=== PATIENT | male | born 1970 | race Caucasian/White ===

== ENCOUNTER 2016-06-20 12:10 | Emergency (ER) | payer BC, OTHER ==
[2016-06-20] MEDS ORDERED: Lidocaine 1% w/Epinephrine 1:100K 30 ML VIAL ONE (12:23)
[2016-06-20] MEDS ORDERED: Adacel (T-DAP) 0.5 ML VIAL ONE (12:47)
--- NOTE | 2016-06-20 14:25 | ERRECORD ---
[facility] EMERGENCY RECORD HPI LACERATION (12:23 MBRI) CHIEF COMPLAINT: Patient presents for evaluation of laceration to face, on the left, 0-1.5cm in length, No foreign body, Not grossly contaminated, Pt with through and through lac to the upper lip on the left side. Pt was working and a wrench slipped and struck him the face. No other injuries reported. No headache, no LOC. Denies other complaints. HISTORIAN: History provided by patient. MECHANISM OF INJURY: Known mechanism. QUALITY: Laceration quality straight. TIME COURSE: Sudden onset of symptoms, just prior to arrival. ASSOCIATED WITH: No associated symptoms. COMPLICATING FACTORS: No complicating factors, no risk for infection. EXACERBATED BY: Patient's condition exacerbated by nothing. RELIEVED BY: Patient's condition relieved by nothing. TETANUS: Tetanus status not up to date, tetanus immunization ordered. ROS (MonJun 21, 2016 06:10 MBRI) CONSTITUTIONAL: Negative constitutional review of systems. EYES: Negative eye review of systems. ENT: Negative ears, nose, throat review of systems, Historian denies drooling, denies dysphagia, denies dysphasia, denies dysphonia, denies epistaxis, denies rhinorrhea, denies sinus pain. CARDIOVASCULAR: Negative cardiovascular review of systems. RESPIRATORY: Negative respiratory review of systems. SKIN: Negative skin review of systems. NEUROLOGIC: Negative neurologic review of systems, Historian denies dizziness, denies headache. HEMO/LYMPHATIC: Normal hematologic/lymphatic system review. NOTES: All systems reviewed, negative except as described above. PAST MEDICAL HISTORY (12:20 LGIB) MEDICAL HISTORY: No past medical history, Flu vaccine not up to date, Tetanus not up to date, Pneumococcal vaccine not up to date. MALE SURGICAL HISTORY: Patient has no surgical history. PSYCHIATRIC HISTORY: No previous psychiatric history. SOCIAL HISTORY: Patient has no smoking history, Patient drinks socially, twice a month, Patient denies drug use. KNOWN ALLERGIES NKDA (Unconfirmed) No Known Allergies (Unconfirmed) No Known Drug Allergies CURRENT MEDICATIONS (12:18 LGIB) None &a-1R&a+25V*p+0X*j5879H*c202B*c15G*c2P*p-0X&a-25V&a+1R Name: MelimarkJc : 1970 M46 MedRec: [id number] AcctNum: [id number] Prepared: MonJun 23, 2016 10:53 by Interface Page 1 of 3 pMD [facility] EMERGENCY RECORD VITAL SIGNS VITAL SIGNS: BP: 175/108, Pulse: 86, Resp: 18 (Non-Labored), Temp: 98.3 (Oral), Pain: 1, O2 sat: 98 on Room Air, Time: 06/20/2016 12:18. (12:18 LGIB) BP: 158/97, Pulse: 84, Resp: 20, Temp: 98.0 (Oral), Pain: 0, O2 sat: 99 on Room Air, Time: 06/20/2016 12:56. (12:56 LSMI) PHYSICAL EXAM (MonJun 21, 2016 06:10 MBRI) CONSTITUTIONAL: Vital signs reviewed, Patient afebrile, Pulse normal, Blood pressure normal, Respiratory rate normal, Patient appears non toxic, Patient appears pain free, Patient alert and oriented to person, place and time. HEAD: normocephalic, 1cm laceration horizontal through dermis of the upper lip,. EYES: Eye exam included findings of eyelids normal to inspection, Pupils equally round and reactive to light, Extraocular muscles intact, Conjunctiva normal. ENT: Ear exam normal, Nose exam normal, Pharynx exam normal, Uvula exam normal, Tonsil exam normal, Mouth exam included findings of, Laceration noted, small lace to the intraoral surface of the upper lip. This appears to be a through and through lesion caused by the wrench impact., teeth normal. RESPIRATORY CHEST: Respiratory exam included findings of no respiratory distress, Breath sounds clear. CARDIOVASCULAR: Cardiovascular assessment normal. NEURO: Neuro exam findings include patient oriented to person, place and time, Speech normal, Gait normal, Cranial nerves intact. SKIN: Skin exam included findings of skin warm, dry, and normal in color. MEDICATION ADMINISTRATION SUMMARY Drug Name: Adacel(Tdap Adolesn/Adult)(PF), Dose Ordered: 0.5 mL, Route: Intramuscular, Status: Ordered, Time: 12:28 06/20/2016, Detailed record available in Medication Service section. DOCTOR NOTES (12:49 MBRI) TEXT: PT has a hx of HTN and has been asymptomatic with the current pressure. No evidence at this time to suggest an associated cardiovascular or neurologic process requiring further intervention or evaluation during this encounter. The patient is on a medication regimen for this and it is recommended that they follow-up with their PMD to further assess their BP control. PROBLEM LIST No recorded problems DIAGNOSIS (12:48 MBRI) FINAL: PRIMARY: facial laceration. &a-1R&a+25V*p+0X*h6170F*c202B*c15G*c2P*p-0X&a-25V&a+1R Name: Jc De La Cruz : 1970 6 MedRec: [id number] AcctNum: [id number] Prepared: MonJun 23, 2016 10:53 by Interface Page 2 of 3 pMD [facility] EMERGENCY RECORD PRESCRIPTION No recorded prescriptions DISPOSITION PATIENT: Disposition Type: Discharge, Disposition: *Discharge Home, Condition: Improved. (12:48 MBRI) Patient left the department. (13:04 LSMI) Young: LGIB=MADALYN Monteiro, Dina LSMI=RUMA Garza Leah MBRI=DO Giang Matthew &a-1R&a+25V*p+0X*p6457O*c202B*c15G*c2P*p-0X&a-25V&a+1R Name: Jc De La Cruz : 1970 6 MedRec: [id number] AcctNum: [id number] Prepared: MonJun 23, 2016 10:53 by Interface Page 3 of 3 pMD MTDD
--- NOTE | 2016-06-20 14:27 | PICIS ---
[facility] EMERGENCY RECORD TRIAGE (MonJun 20, 2016 12:18 LGIB) PATIENT: NAME: Jc De La Cruz, AGE: 46, GENDER: male, : Mon1970, TIME OF GREET: MonJun 20, 2016 12:11, PREFERRED LANGUAGE: Macedonian, ETHNICITY: Not or , ECODE BILLING MAP: [facility], SSN: [id number], Zip Code: [address], KG WEIGHT: 95.25, PHONE: , , , PERSON ID: [id number], PCP: none. (MonJun 20, 2016 12:18 LGIB) PAYMENT: SJ[employer] Self Pay. (12:44) COMPLAINT: lip laceration. (MonJun 20, 2016 12:18 LGIB) ADMISSION: URGENCY: 4 Non Urgent, ADMISSION SOURCE: Home, TRANSPORT: CAR, BED: ER -03. (MonJun 20, 2016 12:18 LGIB) SIRS SCORING: Heart Rate 55-109 (0), Temp range 96.8-101.1 (0), respiratory rate 12-24 (0), Mental Status altered: no (0), Total SIRS Score 0. (12:20 LGIB) PROVIDERS: TRIAGE NURSE: Dina Monteiro RN. (MonJun 20, 2016 12:18 LGIB) PREVIOUS VISIT ALLERGIES: NKDA. (MonJun 20, 2016 12:18 LGIB) NKDA. (12:20 LGIB) KNOWN ALLERGIES NKDA (Unconfirmed) No Known Allergies (Unconfirmed) No Known Drug Allergies CURRENT MEDICATIONS (12:18 LGIB) None VITAL SIGNS VITAL SIGNS: BP: 175/108, Pulse: 86, Resp: 18 (Non-Labored), Temp: 98.3 (Oral), Pain: 1, O2 sat: 98 on Room Air, Time: 06/20/2016 12:18. (12:18 LGIB) BP: 158/97, Pulse: 84, Resp: 20, Temp: 98.0 (Oral), Pain: 0, O2 sat: 99 on Room Air, Time: 06/20/2016 12:56. (12:56 LSMI) NURSING ASSESSMENT: SKIN (12:25 LGIB) CONSTITUTIONAL: Complex assessment performed, Patient arrives ambulatory, Gait steady, History obtained from patient, Patient appears comfortable, Patient cooperative, Patient alert, Oriented to person, place and time, Skin warm, Skin dry, Skin normal in color, Mucous membranes pink, Mucous membranes moist, Patient is well-groomed, Patient complains of lip laceration, wrench popped up and hit patient in the mouth. patient has a through and through laceration of his upper lip. PAIN: upper lip, Onset of pain 06/20/2016 12:00, on a scale 0-10 patient rates pain as 1, Nothing has been tried to alleviate the pain. SKIN: Inspection findings include laceration, to upper lip, length (cm) 1, bleeding controlled. SAFETY: Side rails up, Cart/Stretcher in lowest position, Call &a-1R&a+25V*p+0X*y5609H*c202B*c15G*c2P*p-0X&a-25V&a+1R Name: Jc De La Cruz : 1970 M46 MedRec: [id number] AcctNum: [id number] Prepared: [facility] Jun 23, 2016 10:53 by Interface Page 1 of 5 pMD [facility] EMERGENCY RECORD light within reach, Hospital ID band on. NURSING PROCEDURE: DISCHARGE NOTE (13:01 LSMI) DISCHARGE: Patient discharged to home, ambulating without assistance, driving self, accompanied by friend, Summary of Care printed/ provided, Transition record given to patient, Discharge instructions given to patient. NURSING PROCEDURE: NURSE NOTES (12:37 LGIB) NURSES NOTES: Notes: laceration irrigated with normal saline. MEDICATION ADMINISTRATION SUMMARY Drug Name: Adacel(Tdap Adolesn/Adult)(PF), Dose Ordered: 0.5 mL, Route: Intramuscular, Status: Ordered, Time: 12:28 06/20/2016, Detailed record available in Medication Service section. MEDICATION SERVICE (12:[address] [facility]) Adacel(Tdap Adolesn/Adult)(PF): Order: Adacel(Tdap Adolesn/Adult)(PF) (diphth,pertuss(acell),tet vac/preservative free) - Dose: 0.5 mL : Intramuscular Ordered by: Jacob Giang DO Entered by: Jacob Giang DO MonJun 20, 2016 12:28 , Acknowledged by: Dina Monteiro RN MonJun 20, 2016 12:30. HPI LACERATION (12:23 MBRI) CHIEF COMPLAINT: Patient presents for evaluation of laceration to face, on the left, 0-1.5cm in length, No foreign body, Not grossly contaminated, Pt with through and through lac to the upper lip on the left side. Pt was working and a wrench slipped and struck him the face. No other injuries reported. No headache, no LOC. Denies other complaints. HISTORIAN: History provided by patient. MECHANISM OF INJURY: Known mechanism. QUALITY: Laceration quality straight. TIME COURSE: Sudden onset of symptoms, just prior to arrival. ASSOCIATED WITH: No associated symptoms. COMPLICATING FACTORS: No complicating factors, no risk for infection. EXACERBATED BY: Patient's condition exacerbated by nothing. RELIEVED BY: Patient's condition relieved by nothing. TETANUS: Tetanus status not up to date, tetanus immunization ordered. ROS (MonJun 21, 2016 06:10 MBRI) CONSTITUTIONAL: Negative constitutional review of systems. EYES: Negative eye review of systems. ENT: Negative ears, nose, throat review of systems, Historian denies drooling, denies dysphagia, denies dysphasia, denies dysphonia, denies epistaxis, denies rhinorrhea, denies sinus pain. &a-1R&a+25V*p+0X*v7798C*c202B*c15G*c2P*p-0X&a-25V&a+1R Name: Jc De La Cruz : 1970 M46 MedRec: [id number] AcctNum: [id number] Prepared: Yarelis Jun 23, 2016 10:53 by Interface Page 2 of 5 pMD [facility] EMERGENCY RECORD CARDIOVASCULAR: Negative cardiovascular review of systems. RESPIRATORY: Negative respiratory review of systems. SKIN: Negative skin review of systems. NEUROLOGIC: Negative neurologic review of systems, Historian denies dizziness, denies headache. HEMO/LYMPHATIC: Normal hematologic/lymphatic system review. NOTES: All systems reviewed, negative except as described above. PAST MEDICAL HISTORY (12:20 LGIB) MEDICAL HISTORY: No past medical history, Flu vaccine not up to date, Tetanus not up to date, Pneumococcal vaccine not up to date. MALE SURGICAL HISTORY: Patient has no surgical history. PSYCHIATRIC HISTORY: No previous psychiatric history. SOCIAL HISTORY: Patient has no smoking history, Patient drinks socially, twice a month, Patient denies drug use. PHYSICAL EXAM (MonJun 21, 2016 06:10 MBRI) CONSTITUTIONAL: Vital signs reviewed, Patient afebrile, Pulse normal, Blood pressure normal, Respiratory rate normal, Patient appears non toxic, Patient appears pain free, Patient alert and oriented to person, place and time. HEAD: normocephalic, 1cm laceration horizontal through dermis of the upper lip,. EYES: Eye exam included findings of eyelids normal to inspection, Pupils equally round and reactive to light, Extraocular muscles intact, Conjunctiva normal. ENT: Ear exam normal, Nose exam normal, Pharynx exam normal, Uvula exam normal, Tonsil exam normal, Mouth exam included findings of, Laceration noted, small lace to the intraoral surface of the upper lip. This appears to be a through and through lesion caused by the wrench impact., teeth normal. RESPIRATORY CHEST: Respiratory exam included findings of no respiratory distress, Breath sounds clear. CARDIOVASCULAR: Cardiovascular assessment normal. NEURO: Neuro exam findings include patient oriented to person, place and time, Speech normal, Gait normal, Cranial nerves intact. SKIN: Skin exam included findings of skin warm, dry, and normal in color. EVENTS TRANSFER: Triage to Emergency Emergency Room -03. (MonJun 20, 2016 12:18 LGIB) Removed from Emergency Emergency Room -03. (13:04 LSMI) O2SAT INTERPRETATION (MonJun 21, 2016 06:13 MBRI) O2SAT: Oxygen saturation interpretation: Normal. DOCTOR NOTES (12:49 MBRI) &a-1R&a+25V*p+0X*x8998B*c202B*c15G*c2P*p-0X&a-25V&a+1R Name: Jc De La Cruz : 1970 M46 MedRec: [id number] AcctNum: [id number] Prepared: [facility] Jun 23, 2016 10:53 by Interface Page 3 of 5 pMD [facility] EMERGENCY RECORD TEXT: PT has a hx of HTN and has been asymptomatic with the current pressure. No evidence at this time to suggest an associated cardiovascular or neurologic process requiring further intervention or evaluation during this encounter. The patient is on a medication regimen for this and it is recommended that they follow-up with their PMD to further assess their BP control. LACERATION-SINGLE REPAIR (MonJun 21, 2016 06:13 MBRI) TIMEOUT: Side and/or site verified, Patient identification confirmed, Sterile procedures observed. LACERATION REPAIR: Side and/or site verified, Patient identification confirmed, Sterile procedures observed, Verbal consent obtained, No contamination, no bony deformity, no ecchymosis, Wound not near a neurovascular bundle, Local infiltration with, 1% LIDOCAINE with epinephrine, 4mL, Patient prepped and draped in usual sterile fashion, Wound irrigated with normal saline, Simple repair of laceration, to the upper lip, total length 1.0 cm, Skin layer closed, using 5.0, prolene suture, 2 sutures, interrupted, After procedure, wound well approximated, No complications, Tetanus status not up to date, tetanus immunization ordered, Patient tolerated the procedure well, No foreign body present. PROBLEM LIST No recorded problems DIAGNOSIS (12:48 MBRI) FINAL: PRIMARY: facial laceration. DISPOSITION PATIENT: Disposition Type: Discharge, Disposition: *Discharge Home, Condition: Improved. (12:48 MBRI) Patient left the department. (13:04 LSMI) INSTRUCTION (12:49 MBRI) DISCHARGE: FACIAL LACERATION SUTURE TAPE, MOUTH LACERATION. FOLLOWUP: [facility] [address] [place] [address], , Follow up with Primary Care Physician in 7 days. SPECIAL: Please return for any further issues or concerns, we would be happy to see you. We hope you feel better soon. Follow-up with your PCP for suture removal in 7 days please. May return to work. PRESCRIPTION No recorded prescriptions IMAGING TETANUS CONSENT: Image captured from scanner. (12:58 LSMI) *SUPPLY CHARGE SHEET: Image captured from scanner. (12:58 LSMI) &a-1R&a+25V*p+0X*m2420G*c202B*c15G*c2P*p-0X&a-25V&a+1R Name: MeliJc flores : 1970 M46 MedRec: [id number] AcctNum: [id number] Prepared: MonJun 23, 2016 10:53 by Interface Page 4 of 5 pMD [facility] EMERGENCY RECORD *DISCHARGE INSTRUCTIONS RECEIPT: Image captured from scanner. (13:02 LSMI) ADMIN (MonJun 23, 2016 10:47 MBRI) DIGITAL SIGNATURE: DO Giang Matthew. Young: LGIB=MADALYN Monteiro Lauren LSMI=RUMA Garza Leah MBRI=DO Giang Matthew &a-1R&a+25V*p+0X*s5221F*c202B*c15G*c2P*p-0X&a-25V&a+1R Name: Jc De La Cruz : 1970 6 MedRec: [id number] AcctNum: [id number] Prepared: MonJun 23, 2016 10:53 by Interface Page 5 of 5 pMD [facility] MEDICATION RECONCILIATION You were seen in the Emergency Department on: MonJun 20, 2016 KNOWN ALLERGIES NKDA (Unconfirmed) No Known Allergies (Unconfirmed) No Known Drug Allergies HOME MEDICATIONS None Notes from the emergency department Reviewed with patient &a-1R&a+25V*p+0X*k0784H*c202B*c15G*c2P*p-0X&a-25V&a+1R Name: Jc De La Cruz : 1970 6 MedRec: [id number] AcctNum: [id number] Prepared: MonJun 23, 2016 10:53 by Interface pMD [facility]
== END 2016-06-20 13:01 | disposition home or self-care (01) ==
LOC: BURERS 12:10
DX: S01.511A Laceration without foreign body of lip, initial encounter (principal); W27.8XXA Contact with other nonpowered hand tool, initial encounter; Y92.69 Other specified industrial and construction area as the place of occurrence of the external cause; Y99.0 Civilian activity done for income or pay
CPT/HCPCS: 12011; 90715; J2001

== ENCOUNTER 2016-06-27 10:56 | Emergency (ER) | payer BC ==
--- NOTE | 2016-06-27 11:23 | ERRECORD ---
[facility] EMERGENCY RECORD HPI WOUND CHECK (11:13 MBRI) CHIEF COMPLAINT: Patient presents for evaluation of facial wound, laceration, closed with sutures, Wound is 7 days old, Patient presents for evaluation of Suture removal. HISTORIAN: History provided by patient. LOCATION: Symptoms are localized, most severe to Left upper lip. QUALITY: No pain or complications reported by historian. SEVERITY: Currently there are no symptoms. TIME COURSE: Symptoms are improving. ASSOCIATED WITH: No associated symptoms. EXACERBATED BY: Patient's condition exacerbated by nothing. ROS CONSTITUTIONAL: Negative constitutional review of systems, Historian denies chills, denies fever. (11:13 MBRI) EYES: Negative eye review of systems. (11:13 MBRI) ENT: Negative ears, nose, throat review of systems. (11:13 MBRI) MUSCULOSKELETAL: Historian denies injury, Denies any musculoskeletal pain. (11:13 MBRI) SKIN: Negative skin review of systems, Historian denies skin changes, States wound is healing without any signs of infection or irritation. No pain at site of injury. (11:13 MBRI) NOTES: All systems reviewed, negative except as described above. (11:14 MBRI) PAST MEDICAL HISTORY (11:01 KMOR) MEDICAL HISTORY: No past medical history, Flu vaccine not up to date, Tetanus not up to date, Pneumococcal vaccine not up to date. MALE SURGICAL HISTORY: Patient has no surgical history. PSYCHIATRIC HISTORY: No previous psychiatric history. SOCIAL HISTORY: Patient has no smoking history, Patient drinks socially, twice a month, Patient denies drug use. KNOWN ALLERGIES No Known Drug Allergies CURRENT MEDICATIONS (11:01 KMOR) None VITAL SIGNS (11:00 KMOR) VITAL SIGNS: BP: 159/99, Pulse: 80, Resp: 18, Temp: 97.9 (Oral), Pain: 0, O2 sat: 99 on Room Air, Time: 06/27/2016 11:00. PHYSICAL EXAM (11:13 MBRI) CONSTITUTIONAL: Vital Signs Reviewed, Nursing notes reviewed. HEAD: Head exam included findings of head atraumatic, normocephalic. EYES: Eye exam included findings of eyelids normal to inspection, &a-1R&a+25V*p+0X*v1502B*c202B*c15G*c2P*p-0X&a-25V&a+1R Name: Jc De La Cruz : 1970 M46 MedRec: [id number] AcctNum: [id number] Prepared: MonJun 28, 2016 09:28 by Interface Page 1 of 2 pMD [facility] EMERGENCY RECORD Pupils equally round and reactive to light, Extraocular muscles intact. ENT: ENT exam normal. NEURO: Neuro exam findings include patient oriented to person, place and time, Speech normal, no focal motor deficits. SKIN: Skin exam included findings of skin warm, dry, and normal in color, area of laceration appears to be healing normally. No indications for infection. DOCTOR NOTES (11:13 MBRI) TEXT: PT has a hx of HTN and has been asymptomatic with the current pressure. No evidence at this time to suggest an associated cardiovascular or neurologic process requiring further intervention or evaluation during this encounter. The patient is on a medication regimen for this and it is recommended that they follow-up with their PMD to further assess their BP control. Pt evaluated at this time and appears stable. No findings to suggest sig illness or issue requiring hospitalization or further intervention at this time. Plan of care discussed with pt and questions answered. Pt was informed of reasons for follow-up and return and they stated understanding. Pt is stable for d/c home at this time. PROBLEM LIST No recorded problems DIAGNOSIS FINAL: PRIMARY: lip laderation - healed, sutures removed, ADDITIONAL: ESSENTIAL PRIMARY HYPERTENSION. (11:12 MBRI) PRIMARY: wound check, ADDITIONAL: Suture removal. (11:13 MBRI) PRESCRIPTION No recorded prescriptions DISPOSITION PATIENT: Disposition Type: Discharge, Disposition: *Discharge Home, Condition: Good. (11:12 MBRI) Patient left the department. (11:16 KMOR) Young: KMOR=MADALYN Castaneda, Amada MBRI=DO Giang Matthew &a-1R&a+25V*p+0X*o0128J*c202B*c15G*c2P*p-0X&a-25V&a+1R Name: Jc De La Cruz : 1970 M46 MedRec: [id number] AcctNum: [id number] Prepared: MonJun 28, 2016 09:28 by Interface Page 2 of 2 pMD MTDD
--- NOTE | 2016-06-27 11:23 | PICIS ---
[facility] EMERGENCY RECORD TRIAGE (MonJun 27, 2016 11:00 KMOR) TRIAGE NOTES: Suture removal, placed 1 weeks ago in lip. (MonJun 27, 2016 11:00 KMOR) PATIENT: NAME: Jc De La Cruz, AGE: 46, GENDER: male, : Mon1970, TIME OF GREET: MonJun 27, 2016 10:56, PREFERRED LANGUAGE: Danish, ETHNICITY: Not or , ECODE BILLING MAP: [facility], SSN: [id number], Zip Code: [address], KG WEIGHT: 95.25, PHONE: , , , PERSON ID: [id number], PAYMENT: KEITH Matthew, PCP: none. (MonJun 27, 2016 11:00 KMOR) COMPLAINT: Suture Removal. (MonJun 27, 2016 11:00 KMOR) ADMISSION: URGENCY: 5 Fast [employer], ADMISSION SOURCE: Home, TRANSPORT: CAR, BED: ER -02. (MonJun 27, 2016 11:00 KMOR) ASSESSMENT: Assessment: A&OX4. RR EVEN AND UNLABORED., Symptoms began greater than 1 week ago. (11:01 KMOR) PAIN: No complaint of pain. (11:01 KMOR) IMMUNIZATIONS: Tetanus immunization up to date. (11:01 KMOR) SIRS SCORING: Heart Rate 55-109 (0), Temp range 96.8-101.1 (0), respiratory rate 12-24 (0), Mental Status altered: no (0), Infection or Suspected Infection: No. (11:01 KMOR) TRIAGE SCREENING: Patient denies suicidal ideation, Patient denies presence of domestic violence. (11:01 KMOR) PROVIDERS: TRIAGE NURSE: Amada Castaneda RN. (MonJun 27, 2016 11:00 KMOR) VITAL SIGNS: BP 159/99, Pulse 80, Resp 18, Temp 97.9, (Oral), Pain 0, O2 Sat 99, on Room Air, Time 06/27/2016 11:00. (11:00 KMOR) PREVIOUS VISIT ALLERGIES: No Known Drug Allergies. (MonJun 27, 2016 11:00 KMOR) No Known Drug Allergies. (11:01 KMOR) KNOWN ALLERGIES No Known Drug Allergies CURRENT MEDICATIONS (11:01 KMOR) None VITAL SIGNS (11:00 KMOR) VITAL SIGNS: BP: 159/99, Pulse: 80, Resp: 18, Temp: 97.9 (Oral), Pain: 0, O2 sat: 99 on Room Air, Time: 06/27/2016 11:00. NURSING ASSESSMENT: SKIN (11:02 KMOR) CONSTITUTIONAL: Patient arrives ambulatory, Gait steady, History obtained from patient, Patient appears comfortable, Patient cooperative, Patient alert, Oriented to person, place and time, Skin warm, Skin dry, Skin normal in color, Mucous membranes pink, Mucous membranes moist, Patient is well-groomed, Patient complains of Suture removal, upper lip sutures placed 1 week ago, no complications, here for removal. PAIN: Patient rates pain as 0 out of 10. SKIN: Skin assessment findings include skin warm, Skin dry, Skin &a-1R&a+25V*p+0X*[id number]*c202B*c15G*c2P*p-0X&a-25V&a+1R Name: Jc De La Cruz : 1970 M46 MedRec: [id number] AcctNum: [id number] Prepared: Petty Jun 28, 2016 09:28 by Interface Page 1 of 4 pMD [facility] EMERGENCY RECORD normal in color, Notes: 2 sutures to upper lip, well healed, no signs of infection. NOTES: Patient tolerated procedure well. NURSING PROCEDURE: DISCHARGE NOTE (11:09 [facility]) DISCHARGE: Patient discharged to home, ambulating without assistance, driving self, unaccompanied, Summary of Care printed/ provided, Patient requested and was provided an electronic copy of Discharge Instructions, Transition record given to patient, Discharge instructions given to patient, Simple or moderate discharge teaching performed, Prescriptions given and instructions on side effects given, Medication reconciliation form given, Above person(s) verbalized understanding of discharge instructions and follow-up care, Patient treated and evaluated by physician. HPI WOUND CHECK (11:13 RI) CHIEF COMPLAINT: Patient presents for evaluation of facial wound, laceration, closed with sutures, Wound is 7 days old, Patient presents for evaluation of Suture removal. HISTORIAN: History provided by patient. LOCATION: Symptoms are localized, most severe to Left upper lip. QUALITY: No pain or complications reported by historian. SEVERITY: Currently there are no symptoms. TIME COURSE: Symptoms are improving. ASSOCIATED WITH: No associated symptoms. EXACERBATED BY: Patient's condition exacerbated by nothing. ROS CONSTITUTIONAL: Negative constitutional review of systems, Historian denies chills, denies fever. (11:13 MBRI) EYES: Negative eye review of systems. (11:13 MBRI) ENT: Negative ears, nose, throat review of systems. (11:13 MB[facility]) MUSCULOSKELETAL: Historian denies injury, Denies any musculoskeletal pain. (11:13 MBRI) SKIN: Negative skin review of systems, Historian denies skin changes, States wound is healing without any signs of infection or irritation. No pain at site of injury. (11:13 MBRI) NOTES: All systems reviewed, negative except as described above. (11:14 MBRI) PAST MEDICAL HISTORY (11:01 KMOR) MEDICAL HISTORY: No past medical history, Flu vaccine not up to date, Tetanus not up to date, Pneumococcal vaccine not up to date. MALE SURGICAL HISTORY: Patient has no surgical history. PSYCHIATRIC HISTORY: No previous psychiatric history. SOCIAL HISTORY: Patient has no smoking history, Patient drinks socially, twice a month, Patient denies drug use. &a-1R&a+25V*p+0X*s1587S*c202B*c15G*c2P*p-0X&a-25V&a+1R Name: Jc De La Cruz : 1970 M46 MedRec: [id number] AcctNum: [id number] Prepared: MonJun 28, 2016 09:28 by Interface Page 2 of 4 pMD [facility] EMERGENCY RECORD PHYSICAL EXAM (11:13 MBRI) CONSTITUTIONAL: Vital Signs Reviewed, Nursing notes reviewed. HEAD: Head exam included findings of head atraumatic, normocephalic. EYES: Eye exam included findings of eyelids normal to inspection, Pupils equally round and reactive to light, Extraocular muscles intact. ENT: ENT exam normal. NEURO: Neuro exam findings include patient oriented to person, place and time, Speech normal, no focal motor deficits. SKIN: Skin exam included findings of skin warm, dry, and normal in color, area of laceration appears to be healing normally. No indications for infection. EVENTS TRANSFER: Triage to Emergency Emergency Room -02. (MonJun 27, 2016 11:00 KMOR) Removed from Emergency Emergency Room -02. (11:16 KMOR) O2SAT INTERPRETATION (11:15 MBRI) O2SAT: Oxygen saturation interpretation: Normal. DOCTOR NOTES (11:13 MBRI) TEXT: PT has a hx of HTN and has been asymptomatic with the current pressure. No evidence at this time to suggest an associated cardiovascular or neurologic process requiring further intervention or evaluation during this encounter. The patient is on a medication regimen for this and it is recommended that they follow-up with their PMD to further assess their BP control. Pt evaluated at this time and appears stable. No findings to suggest sig illness or issue requiring hospitalization or further intervention at this time. Plan of care discussed with pt and questions answered. Pt was informed of reasons for follow-up and return and they stated understanding. Pt is stable for d/c home at this time. SUTURE/STAPLE REMOVAL (11:15 MBRI) SUTURE/STAPLE REMOVAL: Side and/or site verified, Verbal consent obtained, Suture or staple removal indicated for scheduled removal, Suture(s) removed from laceration, to face, Wound age 7 days, No drainage present, Suture(s) removed without difficulty, Number of sutures removed 2, There were no complications, Patient tolerated the procedure well. PROBLEM LIST No recorded problems DIAGNOSIS FINAL: PRIMARY: lip laderation - healed, sutures removed, ADDITIONAL: ESSENTIAL PRIMARY HYPERTENSION. &a-1R&a+25V*p+0X*o5689F*c202B*c15G*c2P*p-0X&a-25V&a+1R Name: Jc De La Cruz : 1970 M46 MedRec: [id number] AcctNum: [id number] Prepared: MonJun 28, 2016 09:28 by Interface Page 3 of 4 pMD [facility] EMERGENCY RECORD (11:12 MB[facility]) PRIMARY: wound check, ADDITIONAL: Suture removal. (11:13 MBRI) DISPOSITION PATIENT: Disposition Type: Discharge, Disposition: *Discharge Home, Condition: Good. (11:12 MBRI) Patient left the department. (11:16 KMOR) INSTRUCTION (11:07 MBRI) DISCHARGE: SUTURE REMOVAL, NO COMPLICATION. FOLLOWUP: [facility], [facility], [facility], [facility] [place] [address], , Follow up with Primary Care Physician in 7-10 days. SPECIAL: Please return for any further issues or concerns, we would be happy to see you. Follow-up with your primary physician as needed May return to work without limitations. PRESCRIPTION No recorded prescriptions IMAGING (11:12 [facility]) *SUPPLY CHARGE SHEET: Image captured from scanner. *DISCHARGE INSTRUCTIONS RECEIPT: Image captured from scanner. ADMIN DIGITAL SIGNATURE: MADALYN Castaneda, Amada. (14:23 KMOR) DO Giang Matthew. (MonJun 28, 2016 09:20 MBRI) Young: JSMI=MADALYN Garza Julie KMOR=MADALYN Castaneda Krista MBRI=DO Giang Matthew &a-1R&a+25V*p+0X*m1548N*c202B*c15G*c2P*p-0X&a-25V&a+1R Name: Jc De La Cruz : 1970 M46 MedRec: [id number] AcctNum: [id number] Prepared: MonJun 28, 2016 09:28 by Interface Page 4 of 4 pMD MTDD
== END 2016-06-27 11:09 | disposition home or self-care (01) ==
LOC: BURERS 10:56
DX: S01.511D Laceration without foreign body of lip, subsequent encounter (principal); I10 Essential (primary) hypertension; X58.XXXD Exposure to other specified factors, subsequent encounter
CPT/HCPCS: 99281